=== PATIENT | male | born 1955 | race African-American/Black ===

== ENCOUNTER 2018-12-01 08:46 | Inpatient (IN) ==
[2018-12-01 10:00] LABS: BASO# 0.02 X1000 (0.0-0.2); BASO% 0.3 % (0.0-0.8); EOS# 0.11 X1000 (0.0-0.7); EOS% 1.9 % (0.0-10.0); HEMATOCRIT 32.9 % (42.0-52.0); IMM GRAN# 0.01 X1000 (0.0-0.04); IMM GRAN% 0.2 % (0.0-0.5); LYMPH# 1.91 X1000 (1.2-3.4); LYMPH% 33.3 % (20.5-51.1); MCHC 33.4 g/dL (33-37); MCV 80.6 FL (81-99); MONO# 0.56 X1000 (0.11-0.59); MONO% 9.8 % (1.7-9.3); MPV 9.4 FL (7.4-10.4); NEUT# 3.12 X1000 (1.4-6.5); NEUT% 54.5 % (42.2-75.2); PLT 376 X1000 (130-400); RBC 4.08 XMIL (4.7-6.1); RDW 15.3 % (11.5-14.5); WBC 5.73 X1000 (4.8-10.8)
[2018-12-01] MEDS ORDERED: NORCO-5 PO ONE (10:22)
[2018-12-01 10:32] LABS: AGAP 10; ALBUMIN 3.3 g/dL (3.5-5.0); ALKALINE PHOSPHATASE 69 U/L (32-122); BUN 17 mg/dL (8-22); CALCIUM 8.5 mg/dL (8.8-10.2); CHLORIDE 110 mmol/L (98-107); CK TOTAL 95 U/L (24-204); COSMO 289; CREATININE 0.7 mg/dL (0.7-1.2); ESTIMATED GFR > 60; GLUCOSE 105 mg/dL (70-104); GOT 19 U/L (10-34); GPT 20 U/L (10-44); MAGNESIUM 1.9 mg/dL (1.5-2.7); SODIUM 144 mmol/L (136-145); TCO2 25 mmol/L (25-35); TOTAL BILIRUBIN < 0.15 mg/dL (0.20-1.00)
--- NOTE | 2018-12-01 12:12 | Diag Imaging Result Doc PS360 ---
CT HEAD/C-SPINE W/O CONTRAST - 12/01/2018 INDICATION: weakness all 4 extremities COMPARISON: 11/18/2018 FINDINGS: Head CT:7 The ventricles and sulci are normal in size and contour. No intracranial mass or hemorrhage. The skull is intact. The sinuses, mastoids, and middle ears are clear. Cervical spine: Alignment is anatomic. Vertebral body heights are preserved. There is significant disc space narrowing at C5-6 and C6-7 with significant degenerative spurring. There is also degenerative disc disease elsewhere namely C2-3 and C4-5. There is moderate to advanced multilevel facet degeneration with some spurring. No significant central canal stenosis. No fracture or subluxation. IMPRESSION: Negative head CT. Cervical spondylosis. No acute disease. This exam was performed using automated exposure control, adjustment of mA or kV according to patient size, and/or use of iterative reconstruction technique Electronically signed by Blane Gilliam 12/01/2018 12:09 PM
--- NOTE | 2018-12-01 12:48 | EKG Report ---
Test Performed on : 12/01/2018 10:20:12 AM Test Reason : weakness Blood Pressure : / mmHG Vent. Rate : 078 BPM Atrial Rate : 078 BPM P-R Int : 162 ms QRS Dur : 074 ms QT Int : 370 ms P-R-T Axes : 107 -13 029 degrees QTc Int : 421 ms Sinus rhythm. with premature ventricular complexes. or fusion complexes Low voltage QRS Junctional ST depression, probably normal Borderline ECG No previous ECGs available Unconfirmed Result
--- NOTE | 2018-12-01 13:03 | Diag Imaging Result Doc PS360 ---
CHEST-PORTABLE - 12/01/2018 INDICATION: generalized weakness COMPARISON: 11/18/2018 FINDINGS: Lung volumes are lower, with increasing left hemidiaphragm elevation. The lungs are clear of infiltrate. Heart size is normal. No pneumothorax or pleural effusion. IMPRESSION: No acute process. Electronically signed by Blane Gilliam 12/01/2018 1:01 PM
[2018-12-01 13:38] LABS: BILIRUBIN URINE NEGATIVE (NEGATIVE); BLOOD URINE NEGATIVE (NEGATIVE); CLARITY CLEAR (CLEAR); COLOR YELLOW; GLUCOSE URINE NEGATIVE (NEGATIVE); KETONE URINE TRACE mg/dL (NEGATIVE); LEUKOCYTES URINE TRACE (NEGATIVE); NITRITE URINE NEGATIVE (NEGATIVE); PROTEIN URINE TRACE mg/dL (NEGATIVE); UROBILINOGEN URINE NORMAL
[2018-12-01 13:44] LABS: URINE BACTERIA NEGATIVE /HFP; URINE CAST NONE SEEN /LPF; URINE CRYSTAL NONE SEEN /HPF; URINE EPITHELIAL CELLS <10 /HPF (<10); URINE RBC <10 /HPF (<10); URINE SOURCE CATH; URINE WBC <10 /HPF (<10); URINE YEAST NONE SEEN /HPF
[2018-12-01 13:45] LABS: UR AMPHETAMINES QUAL NONE DETECTED (NONE DETECT); UR BARBITUATES QUAL NONE DETECTED (NONE DETECT); UR BENZODIAZEPIN QUAL NONE DETECTED (NONE DETECT); UR CANNABINOIDS QUAL PRESUMPTIVE POSITIVE (NONE DETECT); UR COCAINE QUAL NONE DETECTED (NONE DETECT); UR METHADONE QUAL NONE DETECTED (NONE DETECT); UR METHAMPHETAMINE QUAL NONE DETECTED (NONE DETECT); UR OPIATES QUAL PRESUMPTIVE POSITIVE (NONE DETECT); UR OXYCODONE QUAL NONE DETECTED (NONE DETECT); UR PCP QUAL NONE DETECTED (NONE DETECT); UR PROPOXYPHENE QUAL NONE DETECTED (NONE DETECT); UR TCA QUAL NONE DETECTED (NONE DETECT)
--- NOTE | 2018-12-01 14:37 | PROVIDER DOCUMENTATION ---
This chart was entered by Alexandria Kimball Scribe, acting as scribe for Myron Pittman MD. HPI-General Adult - General Chief Complaint: General Adult Stated Complaint: CANT WALK Time Seen by Provider: 12/01/18 08:51 Source: patient Allergies/Adverse Reactions: Patient Allergies Allergy/AdvReac Type Severity Reaction Status Date / Time No Known Allergies Allergy Verified 12/01/18 09:01 Home Medications: Home Medication List Medication Instructions Recorded Confirmed Last Taken Type NK [No Home Medications] 12/01/18 12/01/18 Unknown History - History of Present Illness -Gen Adult Nature of Presenting Problems: Patient is a 63 year old male who presents with generalized weakness and bilateral leg pain. States symptoms have been present for 1 month and worsened. History of lymphedema to left leg. Location of Pain/Injury: reports: lower extremity (bilateral) Pain Radiation: reports: no radiation Quality of Pain: reports: aching Severity: reports: mild Onset/Duration: reports: other (1 month) Timing: reports: still present, getting worse Associated Symptoms: reports: weakness Similar Symptoms Previously?: Yes Recently seen or treated by another doctor?: No Review of Systems - Adult - REVIEW OF SYSTEMS - ADULT Constitutional: reports: no symptoms reported. denies: chills, fever, fatique Eyes: reports: no symptoms reported Ears, Nose, Mouth & Throat: reports: no symptoms reported Cardiovascular: reports: no symptoms reported Respiratory: reports: no symptoms reported Gastrointestinal: reports: no symptoms reported Genitourinary: reports: no symptoms reported Musculoskeletal: reports: see HPI, muscle weakness, other (bilateral leg pain). denies: back pain, neck pain Integumentary: reports: no symptoms reported Neurological: reports: no symptoms reported Psychiatric: reports: no symptoms reported Endocrine: reports: no symptoms reported Hematologic/Lymphatic: reports: no symptoms reported Allergic/Immunologic: reports: no symptoms reported All Other Systems: Reviewed and Negative Past History - Adult - PAST MEDICAL HISTORY-ADULT Review of Records: reports: Old Records Reviewed, Social history reviewed & non- contributory. Major Childhood Illnesses: reports: denies history Cardiovascular: reports: denies history Respiratory: reports: denies history Gastrointestinal: reports: denies history Obstetrical/Gynecological: reports: denies history Genitourinary: reports: denies history Musculoskeletal: reports: denies history Neurological: reports: denies history Psychiatric: reports: denies history Endocrine/Immune: reports: denies history Other Conditions: reports: denies history - PRIOR SURGERIES/PROCEDURES Surgical/Procedure History: reports: none - IMMUNIZATION STATUS Childhood Immunizations: See Nurse Assessment Flu Vaccine: See Nurse Assessment - FAMILY HISTORY Family History: reviewed, not pertinent - SOCIAL HISTORY Smoking: cigarettes, less than 1 pack/day Provider spent 3-5 mins advising pt. on dangers of tobacco.: Discussed manners to quit use, and f/u contacts for add'l counseling. Substance Use: alcohol, marijuana Alcohol Use Frequency: occasionally Physical Exam-General - PHYSICAL EXAM-ADULT Initial Vital Signs Reviewed: Yes - CONSTITUTIONAL General Appearance: alert, no apparent distress. negative: lethargic - HEAD, EARS, NOSE, MOUTH & THROAT HENMT: moist mucous membranes, other (mild facial swelling). negative: hearing deficit - RESPIRATORY Respiratory: chest non-tender, lungs clear, normal breath sounds. negative: crackles, rales, rhonchi - CARDIOVASCULAR Cardiovascular: normal peripheral pulses, regular rate, rhythm. negative: tachycardia - GASTROINTESTINAL (ABDOMEN) Abdominal Exam: normal bowel sounds, non tender, soft. negative: guarding, rigid - MUSCULOSKELETAL Extremity: non-tender, other (4 + pitting edema to left lower leg. 2 + pitting edema to right lower leg.). negative: erythema - SKIN Integumentary: normal color, normal turgor, warm/dry. negative: diaphoresis, ecchymosis, erythema - NEUROLOGIC Neurologic: grossly normal. negative: aphasia, facial droop - PSYCHIATRIC Psych/Mental Status: normal mood/affect, oriented x 3. negative: paranoid Progress - PLAN OF CARE/RESULTS Progress/Plan/Lab Results: Vital Signs - 8 hr 12/01/18 08:48 Pulse Rate 74 Respiratory Rate 18 Blood Pressure 131/77 O2 Sat by Pulse Oximetry 97 Orders Category Date Time Status Saline Loc NOW Care 12/01/18 09:47 Active CHEST-PORTABLE [RAD] Stat Exams 12/01/18 09:[address] HEAD/C-SPINE W/O CONTRAST [CT] Stat Exams 12/01/18 09:48 Ordered ALCOHOL BLOOD Stat Lab 12/01/18 09:52 Ordered AMMONIA [CHEM] Stat Lab 12/01/18 09:52 Ordered BLOOD CULTURE [BLDCUL] Stat Lab 12/01/18 09:49 Uncollected CBC WITH ELECTRONIC DIFF [HEME] Stat Lab 12/01/18 09:52 Ordered CK PROFILE [SP CHEM] Stat Lab 12/01/18 09:52 Ordered CK TOTAL [CHEM] Stat Lab 12/01/18 09:52 Ordered COMPREHENSIVE METABOLIC PANEL [CHEM] Stat Lab 12/01/18 09:52 Ordered LACTATE, PLASMA [CHEM] Stat Lab 12/01/18 09:49 Uncollected MAGNESIUM [CHEM] Stat Lab 12/01/18 09:52 Ordered PRO B-NATRIURETIC PEPTIDE Stat Lab 12/01/18 09:52 Ordered TROPONIN T Stat Lab 12/01/18 09:52 Ordered TSH Stat Lab 12/01/18 09:[address] W/POSS RFLX CULT [URINALYSIS] Stat Lab 12/01/18 09:48 Uncollected URINE DRUG SCREEN PL Stat Lab 12/01/18 09:48 Uncollected EKG [EKG] Stat Ther 12/01/18 09:47 Ordered Result Diagrams: 12/01/18 09:50 12/01/18 09:50 - REASSESSMENT Reassessment #1 Time Reassessed: 14:28 Status: unchanged (Old charts reviewed by me. Has been here 4 times since 09/10 with falls and progressive weakness.) - EKG 1 Time of EKG reading by physician:: 10:20 EKG Read and Signed by:: Myron Pittman EKG Interpretation (*Must complete 3 of following elements*): Abnormal Rate: 78 Rhythm: sinus rhythm with premature ventricular complexes or fusion complexes QRS: other (low voltage) [place] Interval: normal Comments: junctional ST depression, probably normal - XRAY 1 XRAY Study: Chest Impression: See EMR Report ( CHEST-PORTABLE - 12/01/2018 INDICATION: generalized weakness COMPARISON: 11/18/2018 FINDINGS: Lung volumes are lower, with increasing left hemidiaphragm elevation. The lungs are clear of infiltrate. Heart size is normal. No pneumothorax or pleural effusion. IMPRESSION: No acute process. Electronically signed by Blane Gilliam 12/01/2018 1:01 PM 12/01/18 1301 Interpreting Physician: Blane Gilliam MD Dictated Date/Time: 12/01/18 1300 cc: Myron iPttman MD; Vik Moura MD) - CT/MRI 1 CT Study: Cervical Spine, Head Impression: See EMR Report (Signed CT HEAD/C-SPINE W/O CONTRAST - 12/01/2018 INDICATION: weakness all 4 extremities COMPARISON: 11/18/2018 FINDINGS: Head CT:7 The ventricles and sulci are normal in size and contour. No intracranial mass or hemorrhage. The skull is intact. The sinuses, mastoids, and middle ears are clear. Cervical spine: Alignment is anatomic. Vertebral body heights are preserved. There is significant disc space narrowing at C5-6 and C6-7 with significant degenerative spurring. There is also degenerative disc disease elsewhere namely C2-3 and C4-5. There is moderate to advanced multilevel facet degeneration with some spurring. No significant central canal stenosis. No fracture or subluxation. IMPRESSION: Negative head CT. Cervical spondylosis. No acute disease. This exam was performed using automated ex posure control, adjustment of mA or kV according to patient size, and/or use of iterative reconstruction technique Electronically signed by Blane Gilliam 12/01/2018 12:09 PM 12/01/18 1209 Interpreting Physician: Blane Gilliam MD Dictated Date/Time: 12/01/18 1207 cc: Myron Pittman MD; Vik Moura MD) - CONSULTS/PCP/HOSPITALIST Notification #1 *Consult/PCP/Hospitalist*: Dr. Rider Time Discussed: 14:30 Reason/Comments: Dr. Pittman consulted with Dr. Rider about patient. Consult Disposition: Will see in ED, Admit Departure - Departure Date of Disposition Decision: 12/01/18 Time of Disposition Decision: 14:31 DIAGNOSIS: Progressive focal motor weakness, Marijuana use UTI (urinary tract infection) Qualifiers: Urinary tract infection type: acute cystitis Hematuria presence: with hematuria Qualified Code(s): N30.01 - Acute cystitis with hematuria Disposition: ADMITTED INPATIENT 09 Certified Medical Emergency: Emergent Condition: Stable Referrals and Follow-Ups: Vik Moura MD [Primary Care Provider] - - Critical Care Note This patient required my direct & personal management of CC.: No Attestation - Physician/ VIET Attestation Patient care was provided by Advanced Practice Provider:: No The physician spent face to face time with patient:: Yes Advanced Practice Provider documentation review:: Supervising physician onsite and consulted in the evaluation and care of this patient. The physician did have a face to face encounter with the patient. This chart was documented by the indicated scribe, (Alexandria Kimball Scribe) and accurately reflects the services I performed and decisions made by me, Myron Pittman MD, as attested by the provider's signature.
[2018-12-01] MEDS ORDERED: ZOFRAN ODT PO PRN (15:13)
[2018-12-01] MEDS ORDERED: PNEUMOVAX 23 IM ONE (18:00)
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
--- NOTE | 2018-12-02 06:52 | HISTORY AND PHYSICAL ---
ADDENDUM: Patient presented to the hospital noting he has had bilateral lower extremity weakness. States that the symptoms have been going on approximately a month and progressed and now he is having upper extremity weakness as well. Denies any fevers or chills. Denies slurred speech, change in vision. Denies difficulty swallowing or breathing. I am going to admit him to the hospital and begin evaluation. We will get physical therapy involved. We will ask Neurology to evaluate as well. cc: Marquise Rider MD
[2018-12-02] MEDS: TYLENOL PO PRN ×2 (09:02→19:13)
[2018-12-02] MEDS ORDERED: PREDNISONE PO ONE (18:29)
--- NOTE | 2018-12-02 19:13 | PROGRESS NOTE ---
DATE: 12/02/2018 SUBJECTIVE: Patient has no major complaints, but he is still very weak. He cannot get up and around. He has pain you can tell just from moving his joints, shoulders, thigh. OBJECTIVE DATA: Vital Signs: Blood pressure 135/67, heart rate 75, respiratory rate 16, temperature 98.6 degrees. Cardiovascular: Regular rate and rhythm. Pulmonary: Bilateral breath sounds. Clear to auscultation. Gastrointestinal: Soft, nontender, nondistended. Bowel sounds are positive. Musculoskeletal: 3/5 in his lower and upper extremities. LABORATORY DATA: Really unremarkable today, but I do not have any new data. PROBLEM LIST: 1. He has a polymyopathy acute. According to his brother, who is a social psychologist here, he was functional up until about a couple of weeks ago and now he cannot do any ADLs. He cannot move his arms or legs and is kind of unclear why, so it is a very unusual kind of situation, but differential also includes polyneuropathy such as Guillain-Briseno, although typically there is not pain with that, and he is not paralyzed and then polymyalgia rheumatica. We will check a sedimentation rate. I will start some low-dose prednisone, and we will see how he does. He is not able to care for himself. He is not able to do ADLs at this point. We will continue with PT and follow. 2. History of ethanol abuse. Seems to be doing okay. I do not see any evidence of withdrawal. We will continue to monitor. He is in pain. We will continue pain medication and follow. DISPOSITION: Pending clinical status. cc: Kenrick Avila MD
[2018-12-02 19:24] LABS: AGAP 11; ALBUMIN 3.3 g/dL (3.5-5.0); ALKALINE PHOSPHATASE 67 U/L (32-122); BUN 13 mg/dL (8-22); CALCIUM 8.4 mg/dL (8.8-10.2); CHLORIDE 104 mmol/L (98-107); COSMO 283; CREATININE 0.7 mg/dL (0.7-1.2); ESTIMATED GFR > 60; GLUCOSE 154 mg/dL (70-104); GOT 17 U/L (10-34); GPT 19 U/L (10-44); POTASSIUM 3.6 mmol/L (3.5-5.1); SODIUM 140 mmol/L (136-145); TCO2 25 mmol/L (25-35); TOTAL BILIRUBIN < 0.15 mg/dL (0.20-1.00); TOTAL PROTEIN 5.2 g/dL (6.3-8.3)
[2018-12-02] MEDS ORDERED: POTASSIUM CHLORIDE 20 MEQ, MAGNESIUM SULFATE 2 GM, THIAMINE 100 MG, FOLIC ACID 1 MG, M.... IV SCH ×6 (20:00)
[2018-12-03] MEDS: LOVENOX SUBQ SCH (05:09)
[2018-12-03 07:38] LABS: BASO# 0.01 X1000 (0.0-0.2); BASO% 0.2 % (0.0-0.8); EOS# 0.09 X1000 (0.0-0.7); EOS% 2.1 % (0.0-10.0); HEMATOCRIT 34.2 % (42.0-52.0); HEMOGLOBIN 11.1 g/dL (14.0-18.0); IMM GRAN# 0.01 X1000 (0.0-0.04); IMM GRAN% 0.2 % (0.0-0.5); LYMPH# 1.69 X1000 (1.2-3.4); LYMPH% 40.2 % (20.5-51.1); MCH 26.2 PG (27-31); MCHC 32.5 g/dL (33-37); MCV 80.9 FL (81-99); MONO# 0.43 X1000 (0.11-0.59); MONO% 10.2 % (1.7-9.3); MPV 9.7 FL (7.4-10.4); NEUT# 1.97 X1000 (1.4-6.5); NEUT% 47.1 % (42.2-75.2); PLT 355 X1000 (130-400); RBC 4.23 XMIL (4.7-6.1); RDW 15.3 % (11.5-14.5)
[2018-12-03] MEDS: PREDNISONE PO SCH (08:27)
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
[2018-12-03] MEDS ORDERED: ATIVAN IV PRN (20:02)
[2018-12-03] MEDS: NORCO-7.5 PO PRN (20:35)
[2018-12-03] MEDS: LIBRIUM PO SCH (20:37)
[2018-12-03] MEDS: NEURONTIN PO SCH (20:37)
[2018-12-03] MEDS ORDERED: POTASSIUM CHLORIDE 20 MEQ, MAGNESIUM SULFATE 2 GM, THIAMINE 100 MG, FOLIC ACID 1 MG, M.... IV SCH ×6 (21:00)
--- NOTE | 2018-12-03 21:03 | PROGRESS NOTE ---
DATE: 12/03/2018 SUBJECTIVE: Today, Mr. Pham refers to be doing fairly okay. He complains of progressively worsening weakness of his shoulder girdle and not being able to lift his upper extremities, and also multiple falls. He was admitted to [facility] since 3 days ago and was transferred to [facility] for higher level of care. The patient is being seen by Neurology. OBJECTIVE: Vital Signs: His current vitals are blood pressure of 138/74, pulse of 70, respiration is 18, temperature is 98 degrees. General: Mr. Pham is a 63-year-old gentleman. He was in bed in no distress. HEENT: Mucosa is pink and moist. Anicteric. Acyanotic. Neck: Supple. Chest: Good air entry bilateral. There were really no crepitations, no rhonchi. Cardiovascular: Regular rate and rhythm. Abdomen: Soft, nontender. Bowel sounds present. Extremities: There is a trace of pedal edema, but the left lower extremity is remarkably more swollen than the right. FURNACE TAPPER: Patient is awake, alert. Has pretty much a very good understanding of what is going on, but shrugging his shoulders is very limited, and he is not able to lift his upper extremities over his shoulders. 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 He does have some muscle atrophy of his M[place] muscles on the upper extremities. For the most part, I think his cranial nerves seem to be intact. LABORATORY DATA: Has been reviewed from 12/01/2018. CBC from early this morning shows WBC of 4.20, hemoglobin of 11.1, MCV is 80 with RDW which is elevated, which will all be suggestive of possible underlying iron deficiency. ASSESSMENT: 1. 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 The patient seems to have lower motor neuron disease on the upper extremity, but remarkably has upper motor neuron manifestations in the lower extremities. This could be concerning for amyotrophic lateral sclerosis; however, a cervical myelopathy is also high on the differential, or it could be separate entities altogether. In any case, I think Mr. Pham will need to have an MRI of his brain, and MRI of his cervical, thoracic, and lumbar spine. We will also check RPR to rule out any possible syphilis. So far, his B12 and folate levels seem to be okay. I think if we do not find anything on the MRIs, he will benefit from possible lumbar puncture and nerve conduction studies and electromyography. Neurology is on board and will follow up with their recommendations. 2. Microcytic anemia, suspicious for underlying iron deficiency. We will do iron studies. 3. Severe alcohol use and abuse. The patient has been counseled. 4. Tobacco abuse. Patient has been counseled. 5. Left lower extremity swelling. This will be concerning for a deep venous thrombosis, so we will do a Doppler ultrasound of the lower extremity. cc: Ozzie Puentes MD
[2018-12-03] MEDS ORDERED: CALMOSEPTINE OINTMENT TOP PRN (23:57)
[2018-12-04] MEDS ORDERED: CALMOSEPTINE OINTMENT TOP PRN (00:09)
[2018-12-04] MEDS: LOVENOX SUBQ SCH (06:09)
[2018-12-04 08:04] LABS: IRON SATURATION 39 %; TIBC 196 ug/dL; TOTAL IRON 77 ug/dL (53-167); UNBOUND IRON 119 ug/dL (112-346)
[2018-12-04] MEDS ORDERED: CALMOSEPTINE OINTMENT TOP SCH (09:00)
[2018-12-04] MEDS: NEURONTIN PO SCH ×2 (09:08→21:55)
[2018-12-04] MEDS: LIBRIUM PO SCH ×2 (09:08→21:55)
[2018-12-04] MEDS: PREDNISONE PO SCH (09:09)
--- NOTE | 2018-12-04 13:46 | Diag Imaging Result Doc PS360 ---
EXAM: MRI BRAIN W/WO CONTRAST 12/04/2018 HISTORY: ALS vs spine pathology TECHNIQUE: T1 sagittal and axial with post gadolinium-enhanced axial and coronal reformation, axial T2, FLAIR, DWI and coronal gradient echo. COMMENT: There are few scattered punctate areas of increased T2-weighted signal intensity in the periventricular white matter of both hemispheres. There is no evidence of mass effect, bleed, or abnormal extra-axial fluid collection. There are no previous studies available for comparison. There is no evidence of restricted diffusion. IMPRESSION: Minimal microvascular white matter chronic ischemic changes. No evidence of acute disease. Electronically signed by Radu Billings 12/04/2018 1:43 PM
--- NOTE | 2018-12-04 13:47 | Diag Imaging Result Doc PS360 ---
MRI THORACIC SPINE WITHOUT CONTRAST - 12/04/2018 INDICATION: ALS vs spine pathology TECHNIQUE: COMPARISON: None FINDINGS: There is severe patient motion artifact. No obvious bone marrow edema. There are couple of benign hemangiomas in the thoracolumbar spine. No large disc herniation or central canal stenosis. IMPRESSION: No obvious abnormality. Electronically signed by Blane Gilliam 12/04/2018 1:45 PM
--- NOTE | 2018-12-04 13:49 | Diag Imaging Result Doc PS360 ---
MRI LUMBAR SPINE WITHOUT CONTRAST - 12/04/2018 INDICATION: ALS vs spine pathology COMPARISON: None FINDINGS: There is severe patient motion artifact. There appear to be some benign hemangiomas in the lower thoracic and lumbar spine. No definite bone marrow edema. No definite large disc bulge or herniation. No severe central canal stenosis. IMPRESSION: No obvious abnormality. Electronically signed by Blane Gilliam 12/04/2018 1:47 PM
--- NOTE | 2018-12-04 13:50 | Diag Imaging Result Doc PS360 ---
MRI CERVICAL SPINE WITHOUT CONTRAST - 12/04/2018 INDICATION: cervical radiculopathy COMPARISON: None FINDINGS: There is severe, severe patient motion artifact. IMPRESSION: Nondiagnostic. Electronically signed by Blane Gilliam 12/04/2018 1:48 PM
--- NOTE | 2018-12-04 15:28 | PROGRESS NOTE ---
DATE: 12/04/2018 SUBJECTIVE: Mr. Pham reports some improvement in his strength, specifically improved power in the legs. He does not have any new complaints today. EMG study yesterday was remarkably unremarkable. There is evidence of peripheral neuropathy in the left leg, but findings are not nearly sufficient to explain his difficulty. There was not needle EMG evidence of widespread denervation to confirm clinical suspicion of ALS. Cervical MRI today is uninterpretable due to movement artifact. He did tolerate brain, thoracic and lumbar MRI better, and there were no significant findings on those studies. On exam, with patient supine, he demonstrated good power in the legs. I can overcome the iliopsoas grading 4/5 on the left. Anterior tibialis is 4+/5 bilaterally. Gastrocnemius is 5/5 bilaterally. He reported discomfort with splinting and guarding, and I could not evaluate left quadriceps function. Right quadriceps is 5/5. Left lower leg edema persists. Reflexes are 2+ at the knees and ankles. Plantar response is silent bilaterally. He reports diminished pinprick appreciation over the right lower leg compared to the left today, but responses are inconsistent and may not be valid. Straight leg raising is negative. Feet are warm. IMPRESSION: Reported generalized weakness, greater weakness in the left leg, left proximal leg pain, weakness in the hands, 40 pound weight loss. Clinical findings are less prominent than his reported difficulty would suggest. Negative imaging to this point is reassuring. Negative electromyogram is quite reassuring. I think we should try again to get a good cervical spine magnetic resonance imaging. He may require sedation. I do not think that is urgent. I encouraged him to be aggressive with his physical therapy, and he told me that he would. Depending on his clinical course, we might repeat cervical magnetic resonance imaging later as an outpatient. I will be glad to follow him as an outpatient. cc: MD BRYAN Arzola III
--- NOTE | 2018-12-04 20:22 | PROGRESS NOTE ---
DATE: 12/04/2018 SUBJECTIVE: This patient states that he feels a little bit more stronger today compared with yesterday. He does not have any new complaints. We did a cervical spine MRI, brain MRI, lumbar spine MRI, and thoracic spine MRI, and all of them were negative except that there was a severe patient motion artifact in the cervical MRI and it was not diagnostic. This patient has been evaluated by Neurology Department. Patient we need to repeat an MRI at some point. We will continue physical therapy and I will add occupational therapy to evaluate this patient. Probably also, we need to send this patient to a rehab center. OBJECTIVE: Vital Signs: Temperature 98.4 degrees, pulse 75, respiratory rate 16, blood pressure 122/73, oxygen saturation 98 on room air. HEENT: Head normocephalic. No trauma. PERRLA. Neck: Supple. No JVD. No masses. Central trachea. Chest: Clear to auscultation. No wheezing. No rales. Abdomen: Soft, nontender, nondistended. No hepatosplenomegaly. Extremities: I do not see any edema. No clubbing. No cyanosis. Neurologic: This patient is alert. He is oriented. He is able to raise his extremities off the bed. His strength is about 2 to 3/5. Upper extremities are weak, but stronger compared with the lower extremities, maybe 3 to 4/5, especially proximal. LABORATORY: Glucose 117. Iron 77, total iron binding capacity 196, ferritin level is 327. Folic acid is more than 40 and vitamin B12 784. ASSESSMENT AND PLAN: 1. Generalized weakness, mostly proximally. We do not have a clear diagnosis, but MRI has been negative except that we do not have a final report on the cervical MRI due to patient motion. We might need to repeat the MRI of the cervical area at some point. It looks like also the electromyelogram has been negative per Neurology Department. We will continue physical therapy. I will try occupational therapy as well, and probably this patient needs to go to a rehab center. 2. Microcytic anemia, likely due to anemia of chronic disease. 3. Severe alcohol use and abuse. This patient has been advised against alcohol use. Will continue with daily cessation education. I am not sure if this neurological problems/muscle weakness is related to alcohol dependence. 4. Tobacco abuse. This patient has been advised against tobacco use. Will continue with daily cessation education. 5. Left lower extremity swelling concerning for deep venous thrombosis. Venous Doppler ultrasound has been done; pending report. cc: Noble Adkins MD
[2018-12-04] MEDS: NORCO-7.5 PO PRN (21:55)
[2018-12-05 07:10] LABS: BASO# 0.02 X1000 (0.0-0.2); BASO% 0.4 % (0.0-0.8); EOS# 0.09 X1000 (0.0-0.7); EOS% 1.7 % (0.0-10.0); LYMPH# 2.54 X1000 (1.2-3.4); MCH 27.1 PG (27-31); MCHC 33.3 g/dL (33-37); MCV 81.3 FL (81-99); MONO# 0.45 X1000 (0.11-0.59); MONO% 8.3 % (1.7-9.3); MPV 9.5 FL (7.4-10.4); NEUT% 42.6 % (42.2-75.2); PLT 336 X1000 (130-400); RBC 4.06 XMIL (4.7-6.1); RDW 15.4 % (11.5-14.5)
[2018-12-05] MEDS: LOVENOX SUBQ SCH (07:34)
[2018-12-05 07:36] LABS: AGAP 7; BUN 10 mg/dL (8-22); CALCIUM 8.8 mg/dL (8.8-10.2); CHLORIDE 107 mmol/L (98-107); COSMO 278; CREATININE 0.6 mg/dL (0.7-1.2); ESTIMATED GFR > 60; GLUCOSE 92 mg/dL (70-104); MAGNESIUM 1.9 mg/dL (1.5-2.7); SODIUM 140 mmol/L (136-145); TCO2 26 mmol/L (25-35)
[2018-12-05] MEDS: NORCO-7.5 PO PRN (09:53)
[2018-12-05] MEDS: NEURONTIN PO SCH (09:53)
[2018-12-05] MEDS: PREDNISONE PO SCH (09:53)
[2018-12-05] MEDS: LIBRIUM PO SCH (10:20)
--- NOTE | 2018-12-05 12:16 | DISCHARGE SUMMARY ---
ADMISSION DATE: 12/02/2018 DISCHARGE DATE: DISCHARGE DIAGNOSES: 1. Generalized weakness mostly on the left leg, left proximal leg pain, hand weakness and weight loss. 2. Microcytic anemia. 3. Alcohol use and abuse. 4. Tobacco abuse. 5. Obesity with a body mass index of more than 33. PROCEDURE PERFORMED: 1. Chest x-ray dated 12/01/2018. Impression: No acute process. CT scan of the head and cervical spine dated 12/01/2018. Impression: Negative head CT cervical spondylosis. No acute disease. Cervical spine MRI nondiagnostic due to severe patient motion artifact. 2. Brain MRI dated 12/04/2018. Impression: Minimal microvascular white matter chronic ischemic changes. No evidence of acute disease. Lumbar spine MRI. No obvious abnormality. Thoracic spine MRI, no obvious abnormality. Reported electromyography by Neurology Department as negative. HOSPITAL COURSE: A 63-year-old male presented to [facility] ER with a chief complaint of increased pain to his lower extremities. He has a history of lymphedema on his left leg. As per the patient, he was unable to walk. He was admitted on 12/01/2018. The son called EMS, and when they arrived, the patient refused to be transported by EMS, but did allow them to assist him into the vehicle. Apparently, he has been having also multiple falls, but no injury. He smokes 1 to 2 cigarettes a day and drinks 4 to 5 beers a day, and smokes marijuana every other day which certainly can be a contributing factor to his falls and weakness. Workup does not show anything significant. The urine drug screen showed it has been positive for presumptive cannabinoids. Alcohol did show non detected. CT scan of the head and cervical spine was negative. He was transferred to [facility] to be evaluated by Neurology Department. We did an electromyogram, and also multiples MRIs including brain, cervical spine, lumbar spine and thoracic spine, but they did not show any acute issue. The cervical spine though was non diagnostic due to severe patient motion artifact. Neurology Department evaluated this patient. They have recommended to be aggressive with physical therapy, and actually this patient will be discharged today to a rehab center. They will follow this patient up as an outpatient, and they will probably repeat the MRI of the neck/cervical spine in the near future if needed. The patient seems to be improving a little bit on a daily basis here, but I do believe also he needs more aggressive physical therapy and stay away from alcohol and tobacco and drug use. This has been explained to the patient in detail. He will need to follow up with Dr. Fortune in 1 to 2 weeks. He is tolerating p.o. without any problem. PHYSICAL EXAMINATION: Vital Signs: Temperature 98.3 degrees, pulse 66, respiratory rate 18, blood pressure 132/73, and oxygen saturation 94% on room air. HEENT: Head normocephalic. No trauma. PERRLA. Neck: Supple. No JVD. No masses. Central trachea. Chest: Clear to auscultation. No wheezing. No rales. Abdomen: Soft, nontender, and nondistended. No hepatosplenomegaly. Extremities: No clubbing. No cyanosis. Neurological: This patient is alert. He is oriented. He is able to raise his upper extremities off the bed, and also his lower extremity has about 2 to 3/5 strength. He has some muscle pain mostly proximal. LABORATORY: WBC 5.4, hemoglobin, 11, hematocrit 33, and platelets 366,000. Sodium 140, potassium chloride 107, bicarbonate 26, BUN 10, creatinine 0.6, glucose 92, calcium 8.8, and magnesium 1.9. DISCHARGE MEDICATIONS: 1. Acetaminophen 650 mg p.o. q.6 hours as needed. 2. Folic Acid 1 mg p.o. daily. 3. Gabapentin 100 mg p.o. b.i.d. 4. [place] 7.5 q.6 hours as needed. 5. Centrum Silver multivitamin 1 tablet p.o. daily. 6. Prednisone 10 mg p.o. daily for 5 days and then decreased to 5 mg daily for 5 days and then stop. 7. Thiamine 100 mg p.o. daily. FOLLOWUP: Follow up with Dr. Fortune in 1 to 2 weeks. TIME SPENT: Time discharging this patient 35 minutes. cc: Noble Adkins MD
[2018-12-05 13:00] VITALS: BP 129/76
--- NOTE | 2018-12-05 14:14 | Extremity Venous Study ---
PROCEDURE NAME: Venous U/S Left Leg - 12/04/2018 LEFT LOWER EXTREMITY VENOUS STUDY: REQUESTING PHYSICIAN: Dr. Puentes. CENTRAL OFFICE TECHNICIAN: Charlene. INDICATIONS: Left leg swelling. EQUIPMENT: Corso12 Vivid E9 ultrasound system with a 9 L-D transducer. FINDINGS: Image of the left lower extremity venous system with comparison to the right common femoral vein were obtained in both sagittal and transverse planes. Doppler was used to evaluate veins for spontaneity, phasicity, respiratory excursion, and digital augmentation. There appears to be no obvious superficial or deep venous thrombosis noted. The flow appears to be normal. INTERPRETATION: Normal left lower extremity venous study. cc: MD Ozzie Chaidez MD
== END 2018-12-05 13:24 | DRG 947 ==
LOC: P.ED 08:46 → SUATTDRO 15:30 → INTOOBSV 15:30 → P.MEDSURG 15:30 → SUATTDRO 12-02 14:33 → 4N 12-03 15:21
PROVIDERS: ATTEND Internal Medicine